=== PATIENT | female | born 1980 ===

== ENCOUNTER 2025-03-26 07:30 | Inpatient (IN) | payer OTHER ==
[~2025-03-26] VITALS: Ht 180.3 cm; Wt 105.7 kg
[2025-03-26 10:56] VITALS: BP 122/71
[2025-04-02] MEDS ORDERED: CEFAZOLIN SODIUM 1,000 MG VIAL ONE (11:20)
[2025-04-02] MEDS ORDERED: METRONIDAZOLE/SODIUM CHLORIDE 500 MG/100 ML PIGGYBACK IV ONE (11:20)
[2025-04-02] MEDS ORDERED: POVIDONE-IODINE 118 ML BOTT TOP ONE (12:20)
[2025-04-02] MEDS ORDERED: SUGAMMADEX SODIUM 200 MG/2 ML VIAL IV ONE (15:39)
[2025-04-02] MEDS ORDERED: KETOROLAC TROMETHAMINE 60 MG VIAL IM STA (16:59)
[2025-04-02] MEDS ORDERED: PROMETHAZINE HCL 25 MG/ML AMPUL IM PRN (17:00)
[2025-04-02] MEDS ORDERED: RINGERS SOLUTION,LACTATED 1,000 ML IV SCH (17:00)
[2025-04-02] MEDS ORDERED: KETOROLAC TROMETHAMINE 30 MG VIAL IV SCH (18:00)
[2025-04-02] MEDS ORDERED: CYCLOBENZAPRINE HCL 5 MG TABLET PO SCH (18:00)
[2025-04-02] MEDS ORDERED: ACETAMINOPHEN 500 MG GEL..CAP PO SCH (18:00)
[2025-04-02] MEDS ORDERED: ONDANSETRON HCL 2 MG/ML VIAL ONE (18:26)
[2025-04-02] MEDS ORDERED: KETOROLAC TROMETHAMINE 30 MG VIAL ONE (18:27)
[2025-04-02 22:03] VITALS: BP 122/71
[2025-04-03 01:22] VITALS: BP 111/66
[2025-04-03 06:35] LABS: BASO % 0.1 % (0.1-1.2); EOS # 0.01 (0.04-0.54); EOS % 0.1 % (0.7-7.0); LYMPH # 1.38 (1.18-3.74); LYMPH % 13.8 % (19.3-53.1); MEAN PLATELET VOLUME 10.00 fl (9.4-12.4); MONO # 0.73 (0.24-0.82); MONO % 7.3 % (4.7-12.5); NEUT # 7.86 (1.56-6.13); NEUT % 78.5 % (34.0-71.1); RED CELL DISTRIBUTION WIDTH 12.5 % (11.6-14.4)
[2025-04-03 09:04] VITALS: BP 138/79
== END 2025-04-03 09:42 | disposition home or self-care (01) | DRG 743 ==
LOC: SURH 04-02 07:00 → O/R 04-02 08:21 → OB/GYN 04-02 08:21 → SURH 04-02 10:15 → OB/GYN 04-02 17:43
PROVIDERS: ADMIT Student in an Organized Health Care Education/Training Program; ATTEND Student in an Organized Health Care Education/Training Program
PROC: 0UT74ZZ Resection of Bilateral Fallopian Tubes, Percutaneous Endoscopic Approach (ICD-10-PCS; 2025-04-02)
PROC: 0UB14ZZ Excision of Left Ovary, Percutaneous Endoscopic Approach (ICD-10-PCS; 2025-04-02)
PROC: 0TJB8ZZ Inspection of Bladder, Via Natural or Artificial Opening Endoscopic (ICD-10-PCS; 2025-04-02)
PROC: 0UT94ZZ Resection of Uterus, Percutaneous Endoscopic Approach (ICD-10-PCS; principal; 2025-04-02 07:00)
DX: N84.0 Polyp of corpus uteri (principal); N80.03 Adenomyosis of the uterus; D25.9 Leiomyoma of uterus, unspecified; Z90.710 Acquired absence of both cervix and uterus; N94.4 Primary dysmenorrhea; N83.12 Corpus luteum cyst of left ovary